=== PATIENT | female | born 1970 ===

== ENCOUNTER 2020-07-01 17:44 | Inpatient (IN) | payer MEDICARE, MEDICAID ==
[2020-07-01] MEDS ORDERED: Sodium Chloride 0.9% 10 ML Syringe FLUSH PRN (17:49)
[2020-07-01] MEDS ORDERED: Sodium Chloride 0.9% 500 ML IV ONE (17:51)
--- NOTE | 2020-07-01 18:10 | EDM.PDOC ---
<Bobo Davies - Last Filed: 07/01/20 22:04> ED HPI GENERAL MEDICAL PROBLEM - General Chief Complaint: Abdominal Pain Stated Complaint: STOMACH PAINS Time Seen by Provider: 07/01/20 18:03 - Related Data Allergies Allergy/AdvReac Type Severity Reaction Status Date / Time diphenhydramine HCl Allergy Cannot Verified 07/01/20 19:01 [From Benadryl] Remember Sulfa (Sulfonamide Allergy Cannot Verified 07/01/20 19:01 Antibiotics) Remember sulfamethoxazole Allergy Cannot Verified 07/01/20 19:01 [From Bactrim] Remember trimethoprim [From Bactrim] Allergy Cannot Verified 07/01/20 19:01 Remember Home Meds: Home Meds Calcium Carbonate/Vitamin D3 [Calcium 500 + Vit D 200 Tablet] 1 each PO DAILY 03/31/14 [History] Docusate Sodium [Colace] 100 mg PO BEDTIME 03/31/14 [History] Escitalopram [Lexapro] 20 mg PO BEDTIME 03/31/14 [History] Fluticasone Furoate [Veramyst] 2 spray NS BEDTIME 03/31/14 [History] Loratadine [Claritin RediTabs] 10 mg PO BEDTIME 03/31/14 [History] Multivitamin [Daily Multiple Vitamin] 1 tab PO DAILY 03/31/14 [History] OLANZapine 25 mg PO BEDTIME 03/31/14 [History] Tolterodine Tartrate [Detrol LA] 4 mg PO DAILY 03/31/14 [History] buPROPion [Wellbutrin] 75 mg PO DAILY 03/31/14 [History] lamoTRIgine [Lamotrigine] 250 mg PO BID 03/31/14 [History] Albuterol Sulfate [Proair Hfa] 2 puff IH Q4H PRN 07/01/20 [History] Amoxicillin 500 mg PO ASDIRECTED PRN 07/01/20 [History] Calcium Carbonate [Tums Ultra] 400 mg PO ASDIRECTED 07/01/20 [History] Calcium Polycarbophil [Fiber Laxative] 625 mg PO DAILY 07/01/20 [History] Celecoxib [CeleBREX] 100 mg PO BID 07/01/20 [History] Dextromethorphan Polistirex [Delsym] 30 mg PO BID PRN 07/01/20 [History] Diclofenac Sodium 4 gm TOP QID PRN 10/17/20 [History] Omeprazole 40 mg PO DAILY 07/01/20 [History] Tolterodine [Detrol LA 24 Hr] 4 mg PO DAILY 07/01/20 [History] Triamcinolone Acetonide [Triamcinolone Acetonide 0.1% Crm] 1 applic .XX TID PRN 07/01/20 [History] Course - Vital Signs Text/Narrative:: Labs/CT abd/pelvis was discussed with patient and caregiver NS 1 L bolus Protonix 40 Zofran 4 ng IV x1 Toradol 30 mg IV Morphine 4 mg IV x1 Case discussed with Dr Little Departure - Departure Time of Disposition: 21:20 Disposition: Admitted As Inpatient 66 Condition: Good Clinical Impression: Cholecystitis, Cholelithiasis - Discharge Information <LucianomehdiEdmundEugenio - Last Filed: 07/02/20 07:15> ED HPI GENERAL MEDICAL PROBLEM - General Source of Information: Reports: Patient History Limitations: Reports: No Limitations - History of Present Illness INITIAL COMMENTS - FREE TEXT/NARRATIVE: Patient sent from [facility] with epigastric pain radiating to back associated with N/V, fever, and generalized weakness. Onset yesterday. Vitals in clinic: BP 99/56, HR 120, T100.1. CBC (WBC 13.8k, Plt 85), CRP (20.7), Chem 14 (unremarkable), Amylase (23), U/A (neg), Lactate (1.9), and COVID-19 (negative) tests were done. Patient sent for further work up and care. PMHx significant for mild mental retardation and schizoaffective disorder. Onset Date: 06/30/20 Location: Reports: Abdomen Quality: Reports: Ache Severity: Moderate Past Medical History Neurological History: Reports: Other (See Below) (Mild mental retardation) Psychiatric History: Reports: Other (See Below) (Schizoaffective disorder) Social & Family History - Alcohol Use Alcohol Use History: No ED ROS GENERAL - Review of Systems Review Of Systems: Comprehensive ROS is negative, except as noted in HPI. ED EXAM, GI/ABD - Physical Exam Exam: See Below Exam Limited By: No Limitations General Appearance: Alert, WD/WN, No Apparent Distress Eyes: Bilateral: Normal Appearance Head: Atraumatic, Normocephalic Neck: Full Range of Motion Respiratory/Chest: No Respiratory Distress, Lungs Clear, Normal Breath Sounds Cardiovascular: Regular Rate, Rhythm, No Murmur GI/Abdominal Exam: Normal Bowel Sounds, Soft, No Distention Back Exam: No: CVA Tenderness (R), CVA Tenderness (L) Extremities: Normal Range of Motion Neurological: Alert, Oriented, No Motor/Sensory Deficits Psychiatric: Normal Affect, Normal Mood Skin Exam: Warm, Dry, Intact Course - Vital Signs Last Recorded V/S: Last Vital Signs Temp 37.1 C 07/02/20 05:20 Pulse 127 H 07/02/20 06:34 Resp 18 07/02/20 06:34 BP 78/48 L 07/02/20 06:34 Pulse Ox 91 L 07/02/20 06:34 - Orders/Labs/Meds Orders: Active Orders 24 hr Category Date Time Status Patient Status [ADT] Routine ADT 07/01/20 21:57 Active Oxygen Therapy [RC] PRN Care 07/01/20 21:57 Active Pulse Oximetry [RC] PRN Care 07/01/20 22:01 Active Up With Assistance [RC] ASDIRECTED Care 07/01/20 21:57 Active Vital Signs [RC] Q4H Care 07/01/20 21:57 Active Heart Healthy Diet [DIET] Diet 07/01/20 Breakfast Ordered Abdomen Pelvis w Cont [CT] Stat Exams 07/01/20 18:29 Taken CXR [Chest 2V] [CR] Stat Exams 07/01/20 18:44 Taken CULTURE BLOOD [BC] Urgent Lab 07/01/20 18:25 Results CULTURE BLOOD [BC] Urgent Lab 07/01/20 18:30 Received Albuterol [Ventolin HFA] Med 07/01/20 21:54 Active 0 gm INH Q4H PRN Calcium Carbonate [Tums Ultra] Med 07/01/20 22:00 Active 400 mg PO ASDIRECTED Calcium Carbonate/Vitamin D3 [Calcium 500-Vit D3 200 Med 07/02/20 09:00 Active Tablet] 1 each PO DAILY Celecoxib [CeleBREX] Med 07/02/20 09:00 Active 100 mg PO BID Dextromethorphan Polistirex [Delsym] Med 07/01/20 21:54 Active 30 mg PO BID PRN Diclofenac Sodium [Voltaren 1% Gel] Med 07/01/20 21:54 Active 4 gm TOP QID PRN Docusate Sodium [Colace] Med 07/02/20 21:00 Active 100 mg PO BEDTIME Docusate Sodium/Sennosides [Senna Plus] Med 07/01/20 21:57 Active 1 tab PO BID PRN Enoxaparin [Lovenox] Med 07/01/20 22:00 Active 40 mg SUBCUT Q24H Escitalopram [Lexapro] Med 07/02/20 21:00 Active 20 mg PO BEDTIME Fluticasone Furoate [Veramyst] Med 07/02/20 21:00 Active 2 spray NS BEDTIME Ketorolac [Toradol] Med 07/01/20 21:49 Active 30 mg IVPUSH Q6H PRN Loratadine [Claritin RediTabs] Med 07/02/20 21:00 Active 10 mg PO BEDTIME Morphine Med 07/01/20 21:49 Active 4 mg IVPUSH Q4H PRN Multivitamins [Tab-A-Anabela] Med 07/02/20 09:00 Active 1 tab PO DAILY OLANZapine [OLANZapine] Med 07/02/20 21:00 Active 25 mg PO BEDTIME Omeprazole [Omeprazole] Med 07/02/20 09:00 Active 40 mg PO DAILY Ondansetron [Zofran] Med 07/01/20 21:53 Active 4 mg IVPUSH Q4H PRN Piperacillin/Tazobactam [Zosyn] 4.5 gm Med 07/01/20 22:00 Active Sodium Chloride 0.9% [Normal Saline] 100 ml IV Q8H Sodium Chloride 0.9% [Normal Saline] 1,000 ml Med 07/01/20 22:00 Active IV ASDIRECTED Sodium Chloride 0.9% [Saline Flush] Med 07/01/20 17:49 Active 10 ml FLUSH ASDIRECTED PRN Tolterodine [Detrol LA 24 Hr] Med 07/02/20 09:00 Active 4 mg PO DAILY Triamcinolone Acetonide [Triamcinolone Acetonide 0.1% Med 07/01/20 21:54 Active Crm] 0 gm .XX TID PRN buPROPion [Wellbutrin] Med 07/02/20 09:00 Active 75 mg PO DAILY calcium polycarbophiL [Fibercon] Med 07/02/20 09:00 Active 625 mg PO DAILY lamoTRIgine Med 07/02/20 09:00 Active 250 mg PO BID Blood Culture x2 Reflex Set [OM.PC] Urgent Oth 07/01/20 17:48 Ordered Saline Lock Insert [OM.PC] Routine Oth 07/01/20 17:49 Ordered Sequential Compression Device [OM.PC] Per Unit Routine Oth 07/01/20 22:01 Or dered Resuscitation Status Routine Resus Stat 07/01/20 21:57 Ordered Medication Orders Acetaminophen (Tylenol) 650 mg PO Q4H PRN PRN Reason: Temperature Last Admin: 07/01/20 23:00 Dose: 650 mg Documented by: LINA Albuterol (Ventolin Hfa) 0 gm INH Q4H PRN PRN Reason: Shortness of Breath Bupropion HCl (Wellbutrin) 75 mg PO DAILY [facility] Calcium Polycarbophil (Fibercon) 625 mg PO DAILY [facility] Celecoxib (Celebrex) 100 mg PO BID [facility] Diclofenac Sodium (Voltaren 1% Gel) 4 gm TOP QID PRN PRN Reason: Rash Digoxin (Lanoxin) 200 mcg IVPUSH ONETIME ONE Stop: 07/02/20 12:01 Digoxin (Lanoxin) 200 mcg IVPUSH ONETIME ONE Stop: 07/02/20 18:01 Digoxin (Lanoxin) 250 mcg PO DAILY [facility] Docusate Sodium (Colace) 100 mg PO BEDTIME [facility] Enoxaparin Sodium (Lovenox) 40 mg SUBCUT Q24H [facility] Last Admin: 07/01/20 23:00 Dose: 40 mg Documented by: LINA Escitalopram Oxalate (Lexapro) 20 mg PO BEDTIME [facility] Hydroxyzine HCl (Vistaril) 50 mg IM Q8H PRN PRN Reason: Nausea Last Admin: 07/02/20 06:38 Dose: 50 mg Documented by: LINA Piperacillin Sod/Tazobactam (Sod 4.5 gm/ Sodium Chloride) 100 mls @ 200 mls/hr IV Q8H [facility] Last Admin: 07/02/20 05:57 Dose: 200 mls/hr Documented by: Admin: 07/01/20 22:12 Dose: 200 mls/hr Documented by: MINAL Sodium Chloride (Normal Saline) 1,000 mls @ 125 mls/hr IV ASDIRECTED [facility] Last Admin: 07/01/20 22:11 Dose: 125 mls/hr Documented by: MINAL Ketorolac Tromethamine (Toradol) 30 mg IVPUSH Q6H PRN PRN Reason: Pain Stop: 07/06/20 21:50 Last Admin: 07/02/20 05:33 Dose: 30 mg Documented by: Admin: 07/01/20 22:10 Dose: 30 mg Documented by: MINAL Lamotrigine (Lamotrigine) 250 mg PO BID [facility] Morphine Sulfate (Morphine) 4 mg IVPUSH Q4H PRN PRN Reason: Pain Last Admin: 07/01/20 22:11 Dose: 4 mg Documented by: MINAL Multivitamins/Minerals/Vitamin C (Tab-A-Anabela) 1 tab PO DAILY [facility] Non-Formulary Medication (Calcium Carbonate [Tums Ultra]) 400 mg PO ASDIRECTED [facility] Non-Formulary Medication (Calcium Carbonate/Vitamin D3 [Calcium 500-Vit D3 200 Tablet]) 1 each PO DAILY [facility] Non-Formulary Medication (Dextromethorphan Polistirex [Delsym]) 30 mg PO BID PRN PRN Reason: Cough Non-Formulary Medication (Fluticasone Furoate [Veramyst]) 2 spray NS BEDTIME [facility] Non-Formulary Medication (Loratadine [Claritin Reditabs]) 10 mg PO BEDTIME [facility] Non-Formulary Medication (Olanzapine [Olanzapine]) 25 mg PO BEDTIME [facility] Non-Formulary Medication (Omeprazole [Omeprazole]) 40 mg PO DAILY [facility] Ondansetron HCl (Zofran) 4 mg IVPUSH Q4H PRN PRN Reason: Nausea/Vomiting Last Admin: 07/02/20 05:33 Dose: 4 mg Documented by: Admin: 07/01/20 22:10 Dose: 4 mg Documented by: MINAL Senna/Docusate Sodium (Senna Plus) 1 tab PO BID PRN PRN Reason: Constipation Sodium Chloride (Saline Flush) 10 ml FLUSH ASDIRECTED PRN PRN Reason: Keep Vein Open Last Admin: 07/01/20 18:32 Dose: 10 ml Documented by: ROSIE Tolterodine Tartrate (Detrol La 24 Hr) 4 mg PO DAILY [facility] Triamcinolone Acetonide (Triamcinolone Acetonide 0.1% Crm) 0 gm .XX TID PRN PRN Reason: Other Labs: Laboratory Tests 07/01/20 07/01/20 Range/Units 18:30 18:30 Lactic Acid 1.5 (0.4-2.0) mmol/L Lipase 36 L (73-393) U/L Meds: Medications Generic Name Dose Route Start Last Admin Trade Name Freq PRN Reason Stop Dose Admin Acetaminophen 650 mg 07/01/20 22:37 07/01/20 23:00 Tylenol PO 650 mg Q4H PRN Administration Temperature Albuterol 0 gm 07/01/20 21:54 Ventolin Hfa INH Q4H PRN Shortness of Breath Bupropion HCl 75 mg 07/02/20 09:00 Wellbutrin PO DAILY [facility] Calcium Polycarbophil 625 mg 07/02/20 09:00 Fibercon PO DAILY [facility] Celecoxib 100 mg 07/02/20 09:00 Celebrex PO BID [facility] Diclofenac Sodium 4 gm 07/01/20 21:54 Voltaren 1% Gel TOP QID PRN Rash Digoxin 200 mcg 07/02/20 12:00 Lanoxin IVPUSH 07/02/20 12:01 ONETIME ONE Digoxin 200 mcg 07/02/20 18:00 Lanoxin IVPUSH 07/02/20 18:01 ONETIME ONE Digoxin 250 mcg 07/03/20 09:00 Lanoxin PO DAILY [facility] Docusate Sodium 100 mg 07/02/20 21:00 Colace PO BEDTIME [facility] Enoxaparin Sodium 40 mg 07/01/20 22:00 07/01/20 23:00 Lovenox SUBCUT 40 mg Q24H [facility] Administration Escitalopram Oxalate 20 mg 07/02/20 21:00 Lexapro PO BEDTIME [facility] Hydroxyzine HCl 50 mg 07/02/20 06:21 07/02/20 06:38 Vistaril IM 50 mg Q8H PRN Administration Nausea Piperacillin Sod/Tazobactam 100 mls @ 200 mls/hr 07/01/20 22:00 07/02/20 05:57 Sod 4.5 gm/ Sodium Chloride IV 200 mls/hr Q8H [facility] Administration Sodium Chloride 1,000 mls @ 125 mls/hr 07/01/20 22:00 10/17/20 22:11 Normal Saline IV 125 mls/hr ASDIRECTED [facility] Administration Ketorolac Tromethamine 30 mg 07/01/20 21:49 07/02/20 05:33 Toradol IVPUSH 07/06/20 21:50 30 mg Q6H PRN Administration Pain Lamotrigine 250 mg 07/02/20 09:00 Lamotrigine PO BID [facility] Morphine Sulfate 4 mg 07/01/20 21:49 07/01/20 22:11 Morphine IVPUSH 4 mg Q4H PRN Administration Pain Multivitamins/Minerals/Vitamin C 1 tab 07/02/20 09:00 Tab-A-Anabela PO DAILY [facility] Non-Formulary Medication 400 mg 07/01/20 22:00 Calcium Carbonate [Tums Ultra] PO ASDIRECTED [facility] Non-Formulary Medication 1 each 07/02/20 09:00 Calcium Carbonate/Vitamin D3 [Calcium 500-Vit D3 200 Tablet] PO DAILY [facility] Non-Formulary Medication 30 mg 07/01/20 21:54 Dextromethorphan Polistirex [Delsym] PO BID PRN Cough Non-Formulary Medication 2 spray 07/02/20 21:00 Fluticasone Furoate [Veramyst] NS BEDTIME [facility] Non-Formulary Medication 10 mg 07/02/20 21:00 Loratadine [Claritin Reditabs] PO BEDTIME [facility] Non-Formulary Medication 25 mg 07/02/20 21:00 Olanzapine [Olanzapine] PO BEDTIME [facility] Non-Formulary Medication 40 mg 07/02/20 09:00 Omeprazole [Omeprazole] PO DAILY [facility] Ondansetron HCl 4 mg 07/01/20 21:53 07/02/20 05:33 Zofran IVPUSH 4 mg Q4H PRN Administration Nausea/Vomiting Senna/Docusate Sodium 1 tab 07/01/20 21:57 Senna Plus PO BID PRN Constipation Sodium Chloride 10 ml 07/01/20 17:49 07/01/20 18:32 Saline Flush FLUSH 10 ml ASDIRECTED PRN Administration Keep Vein Open Tolterodine Tartrate 4 mg 07/02/20 09:00 Detrol La 24 Hr PO DAILY [facility] Triamcinolone Acetonide 0 gm 07/01/20 21:54 Triamcinolone Acetonide 0.1% Crm .XX TID PRN Other Discontinued Medications Generic Name Dose Route Start Last Admin Trade Name Freq PRN Reason Stop Dose Admin Digoxin 0.5 mcg 07/02/20 06:03 Lanoxin IVPUSH 07/02/20 06:04 ONETIME ONE Digoxin 500 mcg 07/02/20 06:10 Lanoxin IVPUSH 07/02/20 06:11 ONETIME ONE Diltiazem HCl 15 mg 07/02/20 05:37 07/02/20 05:47 Diltiazem IVPUSH 07/02/20 05:38 15 mg ONETIME ONE Administration Diltiazem HCl 10 mg 07/02/20 06:01 Diltiazem IVPUSH 07/02/20 06:02 ONETIME ONE Sodium Chloride 500 mls @ 500 mls/hr 07/01/20 17:51 07/01/20 18:35 Normal Saline IV 07/01/20 18:50 500 mls/hr .BOLUS ONE Administration Sodium Chloride 1,000 mls @ 999 mls/hr 07/02/20 06:00 07/02/20 06:00 Normal Saline IV 07/02/20 07:00 999 mls/hr ONETIME ONE Administration Iopamidol 100 ml 07/01/20 19:15 07/01/20 19:56 Isovue-370 (76%) IV 07/01/20 19:16 85 ml ONETIME ONE Administration Metoprolol Tartrate 5 mg 07/02/20 06:24 Lopressor IVPUSH 07/02/20 06:25 ONETIME ONE Pantoprazole Sodium 40 mg 07/01/20 18:16 Protonix Iv IVPUSH 07/01/20 18:17 ONETIME ONE Tolterodine Tartrate 4 mg 07/02/20 09:00 Detrol La 24 Hr PO DAILY [facility] - Re-Assessments/Exams Free Text/Narrative Re-Assessment/Exam: 07/01/20 19:00 Patient care transferred to Dr. Davies. Sepsis Event Note (ED) - Evaluation Sepsis Screening Result: No Definite Risk - Focused Exam Vital Signs: Vital Signs Temp Pulse Resp BP Pulse Ox 07/01/20 21:50 38.0 C 120 H 18 109/56 L 100 - My Orders Last 24 Hours: My Active Orders 07/01/20 17:48 Blood Culture x2 Reflex Set [OM.PC] Urgent 07/01/20 17:49 Sodium Chloride 0.9% [Saline Flush] 10 ml FLUSH ASDIRECTED PRN Saline Lock Insert [OM.PC] Routine 07/01/20 18:25 CULTURE BLOOD [BC] Urgent 07/01/20 18:29 Abdomen Pelvis w Cont [CT] Stat 07/01/20 18:30 CULTURE BLOOD [BC] Urgent 07/01/20 18:44 CXR [Chest 2V] [CR] Stat - Assessment/Plan Last 24 Hours: My Active Orders 07/01/20 17:48 Blood Culture x2 Reflex Set [OM.PC] Urgent 07/01/20 17:49 Sodium Chloride 0.9% [Saline Flush] 10 ml FLUSH ASDIRECTED PRN Saline Lock Insert [OM.PC] Routine 07/01/20 18:25 CULTURE BLOOD [BC] Urgent 07/01/20 18:29 Abdomen Pelvis w Cont [CT] Stat 07/01/20 18:30 CULTURE BLOOD [BC] Urgent 07/01/20 18:44 CXR [Chest 2V] [CR] Stat
[2020-07-01] MEDS ORDERED: Pantoprazole 40 MG Vial IVPUSH ONE (18:16)
[2020-07-01] MEDS ORDERED: Iopamidol 755 Mg/ML 100 ML Bottle IV ONE (19:15)
[2020-07-01] MEDS ORDERED: Morphine 4 MG/ML VIAL IVPUSH PRN (21:49)
[2020-07-01] MEDS ORDERED: Diclofenac Sodium 1% Gel 100 GM Tube TOP PRN (21:54)
[2020-07-01] MEDS ORDERED: Albuterol 8 GM Inhaler INH PRN (21:54)
[2020-07-01] MEDS ORDERED: Triamcinolone Acetonide 0.1% Crm 15 GM Tube PRN (21:54)
[2020-07-01] MEDS ORDERED: DEXTROMETHORPHAN POLISTIREX 30 MG PO PRN (21:54)
[2020-07-01] MEDS ORDERED: CALCIUM CARBONATE 400 MG PO SCH (22:00)
[2020-07-01] MEDS ORDERED: Enoxaparin 40 MG/0.4 ML Syringe SUBCUT SCH (22:00)
[2020-07-01] MEDS: Ketorolac 30 MG/ML SDV IVPUSH PRN (22:10)
[2020-07-01] MEDS: Ondansetron 4 MG/2 ML SDV IVPUSH PRN (22:10)
[2020-07-01] MEDS: Sodium Chloride 0.9% 1,000 ML IV SCH (22:11)
[2020-07-01] MEDS: Piperacillin/Tazobactam 4.5 GM in Sodium Chloride 0.9% 100 ML IV SCH (22:12)
[2020-07-01] MEDS: Acetaminophen 325 MG Tab PO PRN (23:00)
[2020-07-02] MEDS: Ondansetron 4 MG/2 ML SDV IVPUSH PRN (05:33)
[2020-07-02] MEDS: Ketorolac 30 MG/ML SDV IVPUSH PRN (05:33)
[2020-07-02] MEDS ORDERED: Diltiazem 25 MG/5 ML SDV IVPUSH ONE ×2 (05:37→06:01)
[2020-07-02] MEDS: Piperacillin/Tazobactam 4.5 GM in Sodium Chloride 0.9% 100 ML IV SCH (05:57)
[2020-07-02] MEDS ORDERED: Sodium Chloride 0.9% 1,000 ML IV ONE ×3 (06:00→09:19)
[2020-07-02] MEDS ORDERED: Digoxin 500 MCG/2 ML Amp IVPUSH ONE ×4 (06:03→18:00)
[2020-07-02] MEDS ORDERED: hydrOXYzine HCl 50 MG/ML SDV IM PRN (06:21)
[2020-07-02] MEDS ORDERED: Metoprolol Tartrate 5 MG/5 ML SDV IVPUSH ONE (06:24)
[2020-07-02] MEDS: Acetaminophen 325 MG Tab PO PRN (08:07)
[2020-07-02] MEDS: Sodium Chloride 0.9% 1,000 ML IV SCH (08:14)
[2020-07-02] MEDS ORDERED: Non-Formulary Medication 1 Each (Omeprazole [Omeprazole] 40 MG) PO SCH (09:00)
[2020-07-02] MEDS ORDERED: Celecoxib 100 MG Cap PO SCH (09:00)
[2020-07-02] MEDS ORDERED: Multivitamin Tab PO SCH (09:00)
[2020-07-02] MEDS ORDERED: lamoTRIgine 100 MG Tab PO SCH (09:00)
[2020-07-02] MEDS ORDERED: Tolterodine 4 MG Cap.ER PO SCH ×2 (09:00)
[2020-07-02] MEDS ORDERED: Non-Formulary Medication 1 Each (Calcium Carbonate/Vitamin D3 [Calcium 500-Vit D3 200 Tabl PO SCH (09:00)
[2020-07-02] MEDS ORDERED: Calcium Polycarbophil 625 MG Tab PO SCH (09:00)
[2020-07-02] MEDS ORDERED: Sodium Chloride 0.9% 1,000 ML IV SCH (10:30)
[2020-07-02] MEDS ORDERED: LORATADINE 10 MG PO SCH (21:00)
[2020-07-02] MEDS ORDERED: OLANZAPINE 25 MG PO SCH (21:00)
[2020-07-02] MEDS ORDERED: FLUTICASONE FUROATE NS SCH (21:00)
[2020-07-02] MEDS ORDERED: Docusate Sodium 100 MG Cap PO SCH (21:00)
[2020-07-02] MEDS ORDERED: Escitalopram 20 MG Tab PO SCH (21:00)
--- NOTE | 2020-07-03 06:48 | HP ---
ADMISSION DATE: 07/01/2020 REASON FOR ADMISSION: Complicated abdominal pain. HISTORY OF PRESENT ILLNESS: Emily Solitario is a 50-year-old female, local halfway resident, was seen at [facility] and then ER. Presented with a right upper quadrant abdominal pain. Was seen in the ER. CT revealed evidence of cholelithiasis, cholecystitis, and no common duct enlargement; admitted to the hospital for treatment. MEDICATIONS: Daily medications include: 1. Senna 2 tablets 2 daily p.r.n. for constipation. 2. Dulcolax suppository p.r.n. 3. Zofran 4 mg p.r.n. nausea and vomiting. 4. Zyprexa 5 mg 1 p.o. daily plus 20 mg at bedtime, mood stabilizer. 5. Detrol LA 4 mg 1 p.o. daily, bladder. 6. Lamictal 200 mg tablet 2-1/2 in the morning and 2 at bedtime, mood stabilizer. 7. Calcium 500 mg 1 p.o. t.i.d., nutrition. 8. Calcium carbonate plus vitamin D 500/200 1 p.o. at bedtime. 9. Multivitamins. 10.Lexapro 20 mg 1 p.o. daily, mood stabilizer. ALLERGIES: No medication, environmental, or latex allergies. PAST MEDICAL HISTORY: Significant for no previous operative procedures, hospitalizations, unusual childhood diseases, major injuries, or fractures. History of mood disorder, moderate mental retardation. SOCIAL HISTORY: Lives at [facility]. Single, never . Nonsmoker, no alcohol, no chewing, no vaping, and no illicit drug use. REVIEW OF SYSTEMS: GENERAL: Complicated abdominal pain. EYES: Sees well by report. EARS: Hears well by report. OROPHARYNX: Intact dentition. CARDIOVASCULAR: Denies chest pain, palpitations, or syncope. RESPIRATORY: No chronic cough, wheeze, or congestion. GASTROINTESTINAL: Complicated abdominal pain. GENITOURINARY: Voiding comfortably. SKIN: No lesions, eruptions, or moles. ENDOCRINE: No excessive thirst or urination. ALLERGIES: Noted. PSYCHIATRIC: Please see above. PHYSICAL EXAMINATION: VITAL SIGNS: Stable. HEENT: Funduscopic benign. Conjunctivae clear. Bright tympanic membranes. Clear nasal discharge. Mouth and oropharynx dry. NECK: Benign. Thyroid small. CHEST: On auscultation, clear in all lung [place]. HEART: On auscultation, no ectopy or murmur. ABDOMEN: Moderately distended, tympanitic, and tender right upper quadrant. Decreased bowel sounds. PELVIC AND RECTAL: Deferred. EXTREMITIES: Well perfused. NEUROMUSCULAR: Intact. LABORATORY STUDIES: White count 12,500, went to 16,000, right and left shift. Electrolytes satisfactory. Urinalysis clear. COVID testing negative. ASSESSMENT: 1. Complicated right upper quadrant pain. 2. Cholelithiasis. PLAN: Early in the hospital stay, she had marked tachycardia, atrial fibrillation, and lack of response to Cardizem IV with decreased blood pressure. Digoxin 0.5 given with resolution of atrial fibrillation. Continues to be moderately hypotensive. IV fluid hydration, consultation, and then referral. Absence of surgical staff at [facility] to [facility]. provider of record. /[id number] /EDMOND
[2020-07-03] MEDS ORDERED: Digoxin 250 MCG Tab PO SCH (09:00)
--- NOTE | 2020-07-04 12:08 | CR ---
INDICATION: Fever. CHEST TWO VIEWS: PA and lateral views of the chest were obtained and compared with 03/31/14. The heart appears to be enlarged with LVE and increased in size compared with the previous study. A moderate dextroconcave slightly rotator scoliosis is noted at the lower middle thoracic spine. A definite active infiltrate or effusion was not identified. IMPRESSION: 1. No definite acute process. 2. Progressive ASHD. 3. Scoliosis. MTDD
== END 2020-07-02 11:20 | DRG 446 ==
LOC: FB.ED 17:44 → FB.MS 22:07
PROVIDERS: ADMIT Emergency Medicine; ATTEND Family Medicine
DX: K80.10 Calculus of gallbladder with chronic cholecystitis without obstruction (principal); I48.91 Unspecified atrial fibrillation; R00.0 Tachycardia, unspecified; I95.9 Hypotension, unspecified; F70 Mild intellectual disabilities; F25.9 Schizoaffective disorder, unspecified; Z88.1 Allergy status to other antibiotic agents; Z88.2 Allergy status to sulfonamides; Z88.8 Allergy status to other drugs, medicaments and biological substances; Z79.899 Other long term (current) drug therapy
CPT/HCPCS: 36415; 51702; 71046; 74177; 80048; 83605; 83690; 84484; 85025; 87040; 93005; 96374; 96375; 99285-25; A9270-GY; C9113; J1160; J1650; J1885; J2270; J2405; J2543; J3410; J3490; J7030; J7040; J7050; Q9967